=== PATIENT | male | born 1980 | race Caucasian/White ===

== ENCOUNTER 2022-01-23 14:30 | Emergency (ER) | payer MEDICAID ==
[~2022-01-23] VITALS: Ht 180.3 cm; Wt 122.5 kg
[2022-01-23] MEDS ORDERED: CLOZARIL200 MG (14:38)
[2022-01-24] MEDS ORDERED: BENZTROPINE MESY1 MG PO (08:02)
[2022-01-24] MEDS ORDERED: ACETAMINOPHEN325 M1 PO (08:03)
[2022-01-24] MEDS ORDERED: BENADRYL25 MG PO ×2 (08:04→08:05)
[2022-01-24] MEDS ORDERED: BENADRYL ALLERG25 MG PO (08:04)
[2022-01-24] MEDS ORDERED: COUGH DROPS1 EACH MM (08:05)
[2022-01-24] MEDS ORDERED: HYDROCORTISON28.4 G8 TOP (08:07)
[2022-01-24] MEDS ORDERED: ADVIL200 MG PO (08:08)
[2022-01-24] MEDS ORDERED: LOPERAMIDE2 MG PO (08:09)
[2022-01-24] MEDS ORDERED: INVEGA3 MG PO (08:09)
[2022-01-24] MEDS ORDERED: TUMS200 MG PO (08:10)
[2022-01-24] MEDS ORDERED: B-121000 MC2 PO (08:41)
[2022-01-24] MEDS ORDERED: CLOZAPINE200 MG PO (08:42)
[2022-01-24] MEDS ORDERED: CLOZAPINE50 MG PO (08:43)
[2022-01-24] MEDS ORDERED: POLYETHYLENE GL17 GM PO (08:44)
--- NOTE | 2022-01-24 09:35 | EKG ---
[facility] [address] [facility] [place], [place] [address] Signed Normal sinus rhythm Normal ECG No previous ECGs available Confirmed by BRENNON BAXTER MD ([id number] on 01/24/2022 9:35:44 AM Electronically Signed By: BRENNON BAXTER MD 01/24/22 0935 PATIENT NAME: LYN FORBES Electrocardiogram DATE OF : 80 PHYSICIAN: BRENNON BAXTER MD REPORT #: [id number] REPORT IS CONFIDENTIAL AND NOT TO BE RELEASED WITHOUT AUTHORIZATION
[2022-01-24] MEDS ORDERED: BACLOFEN10 MG PO (15:35)
[2022-01-24] MEDS ORDERED: DICLOFENAC SODI50 MG PO (15:36)
[2022-01-24] MEDS ORDERED: DIAZEPAM5 MG PO (15:36)
[2022-01-24] MEDS ORDERED: ARICEPT10 MG PO (15:37)
[2022-01-24] MEDS ORDERED: VITAMIN D250 MCG PO (15:37)
[2022-01-24] MEDS ORDERED: FLOMAX0.4 MG PO (15:38)
[2022-01-24] MEDS ORDERED: HYDROXYZINE HCL25 MG PO (15:38)
[2022-01-24] MEDS ORDERED: METOPROLOL TAR100 MG PO (15:38)
== END 2022-01-25 07:20 ==
LOC: ED 14:30
DX: F20.9 Schizophrenia, unspecified (principal); Z02.89 Encounter for other administrative examinations; Z79.899 Other long term (current) drug therapy; Z20.822 Contact with and (suspected) exposure to COVID-19
CPT/HCPCS: 36415; 80048; 81001; 84443; 85025; 93005; 93010; 99285-25; A9270-GY; C9803; G0480; Q0163; U0003